=== PATIENT | female | born 1945 | race African-American/Black ===

== ENCOUNTER 2019-04-19 12:40 | Emergency (ER) | payer BC, MEDICARE ==
[~2019-04-19] VITALS: Ht 149.9 cm; Wt 50.0 kg
[~2019-04-19 12:40] MED LIST: ASPI-1393 PO; CALC667C4 PO; CINA30; METO25TA3 PO; OMEP20CA5 PO
[2019-04-19] MEDS ORDERED: ACETAMINOPHEN 325MG TABLET PO ONE (13:00)
[2019-04-19] MEDS ORDERED: BACITRACIN 15GM TUBE TOP ONE (13:45)
[2019-04-19 17:55] VITALS: BP 153/66
== END 2019-04-19 18:38 | disposition home or self-care (01) ==
LOC: ER 12:40
DX: S00.81XA Abrasion of other part of head, initial encounter (principal); W01.198A Fall on same level from slipping, tripping and stumbling with subsequent striking against other object, initial encounter; Y93.89 Activity, other specified; Y92.018 Other place in single-family (private) house as the place of occurrence of the external cause; I12.0 Hypertensive chronic kidney disease with stage 5 chronic kidney disease or end stage renal disease; E11.22 Type 2 diabetes mellitus with diabetic chronic kidney disease; N18.6 End stage renal disease; Z99.2 Dependence on renal dialysis
CPT/HCPCS: 70486; 99284

== ENCOUNTER 2019-06-02 17:59 | Inpatient (IN) | payer MEDICARE, BC ==
[~2019-06-02] VITALS: Ht 152.4 cm; Wt 43.1 kg
[2019-06-02] MEDS ORDERED: SODIUM CHLORIDE 0.9% 1,000 ML IV ONE (19:04)
[2019-06-02 21:09] LABS: BASOPHILS % 0.3 % (0.0-2.0); CHLORIDE 107 mEq/L (98-107); EOSINOPHILS % 0.3 % (0.0-5.0); HEMOGLOBIN. 10.4 g/dL (12.0-16.0); LYMPHOCYTES % 9.9 % (20.0-50.0); MEAN CORPUSCULAR HEMOGLOBIN 29.2 pg (28.0-32.0); MEAN CORPUSCULAR VOLUME 89.8 fL (81.0-99.0); MEAN PLATELET VOLUME 7.2 fl (7.4-10.4); MONOCYTES % 6.4 % (2.0-8.0); NEUTROPHILS % 83.1 % (40.0-76.0); PLATELET 296 x1000/uL (130-400); RED BLOOD CELL COUNT 3.56 mill/uL (4.2-5.4); RED CELL DISTRIBUTION WIDTH 19.7 % (11.6-14.6)
[2019-06-02] MEDS ORDERED: DEXTROSE 50% WATER 50ML SYRINGE IV ONE ×2 (21:15)
[2019-06-02] MEDS ORDERED: DEXTROSE 5% WATER 1,000 ML IV ONE (21:30)
[2019-06-02] MEDS ORDERED: LEVOFLOXACIN 750MG PREMIX 150 ML IV ONE (22:30)
[2019-06-02] MEDS ORDERED: ASPIRIN 81MG TABLET PO ONE (22:30)
[2019-06-02 22:50] LABS: CLARITY URINE TURBID (CLEAR); COLOR URINE DARK YELLOW (YELLOW); KETONES URINE NEGATIVE (NEGATIVE); LEUKOCYTE ESTERASE URINE 3+ (NEGATIVE); NITRITE URINE NEGATIVE (NEGATIVE); OCCULT BLOOD URINE 2+ (NEGATIVE); PH URINE 6.5 (4.5-8.0); PROTEIN URINE 3+ (NEGATIVE); SPECIFIC GRAVITY URINE 1.018 (1.005-1.030); UROBILINOGEN URINE 0.2 E.U./dL (0.2-1.0)
[2019-06-03 10:30] VITALS: BP 101/45
[2019-06-03] MEDS ORDERED: GUAIFENESIN 200MG/10ML SUGAR FREE UDC PO PRN (14:30)
[2019-06-03] MEDS ORDERED: ONDANSETRON HCL 4MG/2ML INJ IV PRN (14:30)
[2019-06-03] MEDS ORDERED: DOCUSATE SODIUM 100MG CAPSULE PO PRN (14:30)
[2019-06-03] MEDS ORDERED: IPRATROPIUM/ALBUTEROL 0.5-3(2.5)MG/3ML NEB NEB PRN (14:30)
[2019-06-03] MEDS ORDERED: MAGNESIUM/ALUMINUM HYDROXIDE/SIMETHICONE 30ML UDC PO PRN (14:30)
[2019-06-03] MEDS ORDERED: LORAZEPAM 2MG/ML CPJ IV PRN (14:30)
[2019-06-03] MEDS ORDERED: CLONIDINE 0.1MG TABLET PO PRN (14:30)
[2019-06-03] MEDS ORDERED: NA PHOS,M-B/NA PHOS,DI-BA ENEMA 118ML PR PRN (14:30)
[2019-06-03] MEDS ORDERED: DIPHENHYDRAMINE 50MG/ML VIAL IV PRN (14:30)
[2019-06-03] MEDS ORDERED: HYDROCODONE/ACETAMINOPHEN 5/325MG TABLET PO PRN (14:30)
[2019-06-03 16:00] VITALS: BP 110/58
[2019-06-03 20:00] VITALS: BP 113/59
[2019-06-04] VITALS: BP 130/67
[2019-06-04 04:00] VITALS: BP 112/57
[2019-06-04 06:36] LABS: BASOPHILS % 0.3 % (0.0-2.0); EOSINOPHILS % 0.6 % (0.0-5.0); HEMATOCRIT. 29.1 % (36.0-48.0); HEMOGLOBIN. 9.4 g/dL (12.0-16.0); LYMPHOCYTES % 15.4 % (20.0-50.0); MEAN CORPUSCULAR HEMOGLOBIN 28.8 pg (28.0-32.0); MEAN CORPUSCULAR VOLUME 88.8 fL (81.0-99.0); MEAN PLATELET VOLUME 7.3 fl (7.4-10.4); MONOCYTES % 7.8 % (2.0-8.0); NEUTROPHILS % 75.9 % (40.0-76.0); PLATELET 226 x1000/uL (130-400); RED BLOOD CELL COUNT 3.28 mill/uL (4.2-5.4); RED CELL DISTRIBUTION WIDTH 19.3 % (11.6-14.6)
[2019-06-04 07:23] LABS: CHLORIDE 105 mEq/L (98-107)
[2019-06-04 07:46] LABS: LDL CHOLESTEROL 80 mg/dL (5-100)
[2019-06-04 07:48] LABS: HDL CHOLESTEROL 60 mg/dL (40-59)
[2019-06-04 08:00] VITALS: BP 108/55
[2019-06-04] MEDS ORDERED: BLOOD SUGAR DIAGNOSTIC STRIP TEST SCH (08:45)
[2019-06-04] MEDS ORDERED: BLOOD SUGAR DIAGNOSTIC STRIP TEST PRN (09:00)
[2019-06-04] MEDS: ASPIRIN 81MG EC TABLET PO SCH (09:48)
[2019-06-04] MEDS: ACETAMINOPHEN 325MG TABLET PO PRN (09:48)
[2019-06-04 12:00] VITALS: BP 113/46
[2019-06-04 16:00] VITALS: BP 117/59
[2019-06-04 20:00] VITALS: BP 108/43
[2019-06-04] MEDS: INSULIN LISPRO 100 UNITS/ML SUBCUT SCH (21:00)
[2019-06-04] MEDS: BLOOD SUGAR DIAGNOSTIC STRIP TEST SCH (21:00)
[2019-06-04] MEDS: SODIUM CHLORIDE 0.9% 1,000 ML IV SCH (23:59)
[2019-06-05] VITALS: BP 93/46
[2019-06-05 04:00] VITALS: BP 130/59
[2019-06-05 06:10] LABS: BASOPHILS % 0.4 % (0.0-2.0); EOSINOPHILS % 0.4 % (0.0-5.0); HEMATOCRIT. 29.3 % (36.0-48.0); HEMOGLOBIN. 9.4 g/dL (12.0-16.0); LYMPHOCYTES % 14.6 % (20.0-50.0); MEAN CORPUSCULAR HEMOGLOBIN 28.9 pg (28.0-32.0); MEAN CORPUSCULAR VOLUME 89.8 fL (81.0-99.0); MEAN PLATELET VOLUME 7.3 fl (7.4-10.4); MONOCYTES % 7.7 % (2.0-8.0); NEUTROPHILS % 76.9 % (40.0-76.0); PLATELET 226 x1000/uL (130-400); RED BLOOD CELL COUNT 3.26 mill/uL (4.2-5.4); RED CELL DISTRIBUTION WIDTH 19.5 % (11.6-14.6)
[2019-06-05] MEDS: BLOOD SUGAR DIAGNOSTIC STRIP TEST SCH ×2 (07:40→21:46)
[2019-06-05 08:00] VITALS: BP 124/63
[2019-06-05] MEDS: INSULIN LISPRO 100 UNITS/ML SUBCUT SCH ×2 (08:10→21:00)
[2019-06-05] MEDS: ACETAMINOPHEN 325MG TABLET PO PRN (10:55)
[2019-06-05] MEDS: ASPIRIN 81MG EC TABLET PO SCH (10:55)
[2019-06-05 12:00] VITALS: BP 143/53
[2019-06-05] MEDS: SODIUM CHLORIDE 0.9% 1,000 ML IV SCH (13:21)
[2019-06-05 16:00] VITALS: BP 133/54
[2019-06-05] MEDS: DEXT 5%/0.45% NACL 1000ML 1,000 ML IV SCH (18:43)
[2019-06-05 20:00] VITALS: BP 142/66
[2019-06-05] MEDS: DEXTROSE 50% WATER 50ML SYRINGE IV PRN (21:53)
[2019-06-05] MEDS ORDERED: LEVOFLOXACIN 500MG PREMIX 100 ML IV NR (23:30)
[2019-06-06] VITALS: BP 134/70
[2019-06-06 04:00] VITALS: BP 119/51
[2019-06-06] MEDS: DEXTROSE 50% WATER 50ML SYRINGE IV PRN (06:42)
[2019-06-06 08:00] VITALS: BP 135/59
[2019-06-06] MEDS: INSULIN LISPRO 100 UNITS/ML SUBCUT SCH ×4 (08:10→21:00)
[2019-06-06] MEDS: ASPIRIN 81MG EC TABLET PO SCH (08:42)
[2019-06-06 10:38] LABS: HEMATOCRIT. 27.2 % (36.0-48.0); HEMOGLOBIN. 8.9 g/dL (12.0-16.0); RED BLOOD CELL COUNT 3.03 mill/uL (4.2-5.4)
[2019-06-06 10:39] LABS: BASOPHILS % 0.3 % (0.0-2.0); EOSINOPHILS % 0.9 % (0.0-5.0); LYMPHOCYTES % 8.6 % (20.0-50.0); MEAN CORPUSCULAR HEMOGLOBIN 29.2 pg (28.0-32.0); MEAN CORPUSCULAR VOLUME 89.8 fL (81.0-99.0); MEAN PLATELET VOLUME 7.2 fl (7.4-10.4); MONOCYTES % 6.3 % (2.0-8.0); NEUTROPHILS % 83.9 % (40.0-76.0); PLATELET 205 x1000/uL (130-400); RED CELL DISTRIBUTION WIDTH 19.9 % (11.6-14.6)
[2019-06-06 12:00] VITALS: BP 100/31
[2019-06-06] MEDS: BLOOD SUGAR DIAGNOSTIC STRIP TEST SCH ×3 (12:40→21:30)
[2019-06-06] MEDS: ACETAMINOPHEN 325MG TABLET PO PRN (14:11)
[2019-06-06 16:00] VITALS: BP 141/115
[2019-06-06] MEDS: DEXT 5%/0.45% NACL 1000ML 1,000 ML IV SCH ×2 (17:30→21:30)
[2019-06-06 20:00] VITALS: BP 139/42
[2019-06-07] VITALS (7 sets, daily range): BP systolic 118–190; BP diastolic 56–93
[2019-06-07 07:20] LABS: BASOPHILS % 0.3 % (0.0-2.0); EOSINOPHILS % 0.8 % (0.0-5.0); HEMATOCRIT. 28.1 % (36.0-48.0); LYMPHOCYTES % 7.3 % (20.0-50.0); MEAN CORPUSCULAR VOLUME 89.9 fL (81.0-99.0); MEAN PLATELET VOLUME 7.3 fl (7.4-10.4); MONOCYTES % 6.3 % (2.0-8.0); NEUTROPHILS % 85.3 % (40.0-76.0); PLATELET 206 x1000/uL (130-400); RED BLOOD CELL COUNT 3.12 mill/uL (4.2-5.4); RED CELL DISTRIBUTION WIDTH 19.5 % (11.6-14.6)
[2019-06-07] MEDS: INSULIN LISPRO 100 UNITS/ML SUBCUT SCH ×4 (08:10→21:00)
[2019-06-07] MEDS: ASPIRIN 81MG EC TABLET PO SCH (08:53)
[2019-06-07] MEDS: ACETAMINOPHEN 325MG TABLET PO PRN (08:53)
[2019-06-07] MEDS: BLOOD SUGAR DIAGNOSTIC STRIP TEST SCH ×3 (12:40→21:00)
[2019-06-07] MEDS: DEXT 5%/0.45% NACL 1000ML 1,000 ML IV SCH (17:30)
[2019-06-07] MEDS ORDERED: MORPHINE SULFATE 2 MG/ML CPJ (NOT FOR IM USE) IV PRN (19:45)
[2019-06-07] MEDS ORDERED: LEVOFLOXACIN 250MG PREMIX 50 ML IV SCH (22:00)
[2019-06-08] VITALS: BP 136/73
[2019-06-08 04:00] VITALS: BP 134/70
[2019-06-08 07:13] LABS: CHLORIDE 115 mEq/L (98-107)
[2019-06-08] MEDS: BLOOD SUGAR DIAGNOSTIC STRIP TEST SCH ×4 (07:40→21:57)
[2019-06-08 08:00] VITALS: BP 125/35
[2019-06-08] MEDS: INSULIN LISPRO 100 UNITS/ML SUBCUT SCH ×4 (08:10→21:00)
[2019-06-08] MEDS: ASPIRIN 81MG EC TABLET PO SCH (09:45)
[2019-06-08] MEDS: DEXTROSE 50% WATER 50ML SYRINGE IV PRN (10:50)
[2019-06-08 12:00] VITALS: BP 167/81
[2019-06-08 16:00] VITALS: BP 107/49
[2019-06-08 17:39] LABS: BASOPHILS % 0.3 % (0.0-2.0); EOSINOPHILS % 0.5 % (0.0-5.0); HEMATOCRIT. 30.8 % (36.0-48.0); HEMOGLOBIN. 9.7 g/dL (12.0-16.0); LYMPHOCYTES % 8.2 % (20.0-50.0); MEAN CORPUSCULAR HEMOGLOBIN 28.7 pg (28.0-32.0); MEAN CORPUSCULAR VOLUME 91.1 fL (81.0-99.0); MEAN PLATELET VOLUME 7.1 fl (7.4-10.4); MONOCYTES % 4.8 % (2.0-8.0); NEUTROPHILS % 86.2 % (40.0-76.0); PLATELET 166 x1000/uL (130-400); RED BLOOD CELL COUNT 3.38 mill/uL (4.2-5.4); RED CELL DISTRIBUTION WIDTH 19.8 % (11.6-14.6)
[2019-06-08] MEDS: DEXT 5%/0.45% NACL 1000ML 1,000 ML IV SCH (17:46)
[2019-06-08 20:00] VITALS: BP 145/59
[2019-06-08 21:06] LABS: PROTHROMBIN TIME 10.1 sec (9.6-11.0)
[2019-06-09] VITALS (7 sets, daily range): BP systolic 117–156; BP diastolic 37–88
[2019-06-09] MEDS: BLOOD SUGAR DIAGNOSTIC STRIP TEST SCH ×4 (06:28→21:00)
[2019-06-09 06:37] LABS: BASOPHILS % 0.3 % (0.0-2.0); EOSINOPHILS % 1.4 % (0.0-5.0); HEMATOCRIT. 26.9 % (36.0-48.0); HEMOGLOBIN. 8.7 g/dL (12.0-16.0); MEAN CORPUSCULAR HEMOGLOBIN 29.3 pg (28.0-32.0); MEAN CORPUSCULAR VOLUME 90.8 fL (81.0-99.0); MEAN PLATELET VOLUME 7.5 fl (7.4-10.4); MONOCYTES % 5.9 % (2.0-8.0); NEUTROPHILS % 82.4 % (40.0-76.0); PLATELET 189 x1000/uL (130-400); RED BLOOD CELL COUNT 2.96 mill/uL (4.2-5.4); RED CELL DISTRIBUTION WIDTH 20.1 % (11.6-14.6)
[2019-06-09] MEDS: INSULIN LISPRO 100 UNITS/ML SUBCUT SCH ×4 (07:55→21:00)
[2019-06-09] MEDS: ASPIRIN 81MG EC TABLET PO SCH (08:54)
[2019-06-09] MEDS: DEXTROSE 50% WATER 50ML SYRINGE IV PRN ×3 (11:52→20:41)
[2019-06-09] MEDS ORDERED: LEVOFLOXACIN 250MG PREMIX 50 ML IV ONE (13:35)
[2019-06-09] MEDS ORDERED: MIDAZOLAM HCL 5 MG/5 ML VIAL ONE (13:49)
[2019-06-09] MEDS ORDERED: FENTANYL CITRATE/PF 50MCG/ML 2ML VIAL ONE (13:50)
[2019-06-09] MEDS ORDERED: MIDAZOLAM HCL 2 MG/2 ML VIAL IV PRN (14:06)
[2019-06-09] MEDS ORDERED: FENTANYL CITRATE/PF 50MCG/ML 2ML VIAL IV PRN (14:07)
[2019-06-09] MEDS ORDERED: DEXTROSE 5% WATER 1,000 ML IV SCH (18:00)
[2019-06-09] MEDS: METOCLOPRAMIDE HCL 10MG/2ML VIAL IV SCH (18:00)
[2019-06-09] MEDS: SUCRALFATE 1 G/10 ML UDC GT SCH (18:00)
[2019-06-09] MEDS ORDERED: DEXT 10% WATER 1,000 ML IV SCH (20:15)
[2019-06-10] VITALS: BP 105/61
[2019-06-10] MEDS: SUCRALFATE 1 G/10 ML UDC GT SCH ×4 (00:15→17:49)
[2019-06-10] MEDS: METOCLOPRAMIDE HCL 10MG/2ML VIAL IV SCH ×4 (00:15→17:49)
[2019-06-10 04:00] VITALS: BP 127/35
[2019-06-10] MEDS: BLOOD SUGAR DIAGNOSTIC STRIP TEST SCH ×4 (06:22→17:11)
[2019-06-10 08:00] VITALS: BP_SYST 148; BP_SYST 161; BP_DIAS 21; BP_DIAS 48
[2019-06-10] MEDS: INSULIN LISPRO 100 UNITS/ML SUBCUT SCH ×4 (08:10→17:12)
[2019-06-10] MEDS: ASPIRIN 81MG EC TABLET PO SCH (09:00)
[2019-06-10] MEDS: PANTOPRAZOLE SODIUM 40 MG/VIAL IV SCH (09:37)
[2019-06-10 12:00] VITALS: BP 90/15
[2019-06-10 16:00] VITALS: BP 157/37
[2019-06-10] MEDS: DEXT 10% WATER 1,000 ML IV SCH (16:00)
[2019-06-10 20:00] VITALS: BP 111/36
[2019-06-11] VITALS: BP 174/32
[2019-06-11] MEDS: BLOOD SUGAR DIAGNOSTIC STRIP TEST SCH ×4 (00:18→17:52)
[2019-06-11] MEDS: SUCRALFATE 1 G/10 ML UDC GT SCH ×5 (00:18→23:51)
[2019-06-11] MEDS: METOCLOPRAMIDE HCL 10MG/2ML VIAL IV SCH ×3 (00:18→12:42)
[2019-06-11 04:00] VITALS: BP 141/31
[2019-06-11] MEDS: INSULIN LISPRO 100 UNITS/ML SUBCUT SCH ×4 (05:51→21:00)
[2019-06-11 08:00] VITALS: BP 127/37
[2019-06-11] MEDS: ASPIRIN 81MG EC TABLET PO SCH (08:51)
[2019-06-11] MEDS: PANTOPRAZOLE SODIUM 40 MG/VIAL IV SCH (08:51)
[2019-06-11 11:05] LABS: BASOPHILS % 0.2 % (0.0-2.0); EOSINOPHILS % 0.4 % (0.0-5.0); HEMATOCRIT. 23.9 % (36.0-48.0); HEMOGLOBIN. 7.8 g/dL (12.0-16.0); LYMPHOCYTES % 10.5 % (20.0-50.0); MEAN CORPUSCULAR HEMOGLOBIN 29.5 pg (28.0-32.0); MEAN CORPUSCULAR VOLUME 90.5 fL (81.0-99.0); MEAN PLATELET VOLUME 8.1 fl (7.4-10.4); NEUTROPHILS % 83.9 % (40.0-76.0); PLATELET 152 x1000/uL (130-400); RED BLOOD CELL COUNT 2.64 mill/uL (4.2-5.4); RED CELL DISTRIBUTION WIDTH 19.4 % (11.6-14.6)
[2019-06-11 12:00] VITALS: BP 97/63
[2019-06-11] MEDS: DEXT 10% WATER 1,000 ML IV SCH (12:00)
[2019-06-11] MEDS ORDERED: LEVOFLOXACIN 250MG PREMIX 50 ML IV SCH (15:00)
[2019-06-11 16:00] VITALS: BP 133/55
[2019-06-11] MEDS: LANSOPRAZOLE 30MG DR CAPSULE GT SCH (17:00)
[2019-06-11] MEDS: METOCLOPRAMIDE HCL 10MG TABLET GT SCH ×2 (18:23→23:51)
[2019-06-11 20:00] VITALS: BP 104/26
[2019-06-12 00:05] VITALS: BP 127/30
[2019-06-12] MEDS: BLOOD SUGAR DIAGNOSTIC STRIP TEST SCH ×4 (00:07→18:27)
[2019-06-12 04:00] VITALS: BP_SYST 108; BP_SYST 144; BP_DIAS 33; BP_DIAS 52
[2019-06-12] MEDS: SUCRALFATE 1 G/10 ML UDC GT SCH ×2 (05:05→17:38)
[2019-06-12] MEDS: METOCLOPRAMIDE HCL 10MG TABLET GT SCH ×2 (05:05→17:38)
[2019-06-12] MEDS ORDERED: PANTOPRAZOLE 40MG DR TABLET PO SCH (07:40)
[2019-06-12 08:00] VITALS: BP 108/20
[2019-06-12] MEDS: INSULIN LISPRO 100 UNITS/ML SUBCUT SCH ×4 (08:10→21:00)
[2019-06-12] MEDS: ASPIRIN 81MG EC TABLET PO SCH (09:04)
[2019-06-12] MEDS: LANSOPRAZOLE 30MG DR CAPSULE GT SCH (09:04)
[2019-06-12 10:58] LABS: BASOPHILS % 0.2 % (0.0-2.0); EOSINOPHILS % 1.1 % (0.0-5.0); HEMATOCRIT. 24.2 % (36.0-48.0); HEMOGLOBIN. 7.9 g/dL (12.0-16.0); LYMPHOCYTES % 11.6 % (20.0-50.0); MEAN CORPUSCULAR HEMOGLOBIN 29.2 pg (28.0-32.0); MEAN CORPUSCULAR VOLUME 89.2 fL (81.0-99.0); MEAN PLATELET VOLUME 7.8 fl (7.4-10.4); NEUTROPHILS % 81.1 % (40.0-76.0); PLATELET 177 x1000/uL (130-400); RED BLOOD CELL COUNT 2.71 mill/uL (4.2-5.4); RED CELL DISTRIBUTION WIDTH 20.1 % (11.6-14.6)
[2019-06-12 11:51] VITALS: BP 100/32
[2019-06-12 16:00] VITALS: BP 106/46
[2019-06-12] MEDS ORDERED: DOCUSATE SODIUM SUGAR FREE 100MG/10ML UDC GT PRN (22:30)
[2019-06-13] MEDS: SUCRALFATE 1 G/10 ML UDC GT SCH (00:24)
[2019-06-13] MEDS: METOCLOPRAMIDE 10MG/10 ML UDC GT SCH ×4 (00:24→18:52)
[2019-06-13] MEDS ORDERED: LIDOCAINE HCL/EPINEPHRINE 1%-EPI 1:100,000 20 ML VIAL INFIL NR (05:00)
[2019-06-13] MEDS: BLOOD SUGAR DIAGNOSTIC STRIP TEST SCH ×4 (06:00→18:52)
[2019-06-13] MEDS: INSULIN LISPRO 100 UNITS/ML SUBCUT SCH ×3 (08:10→18:10)
[2019-06-13] MEDS: ASPIRIN 81MG EC TABLET PO SCH (10:34)
[2019-06-13] MEDS: LANSOPRAZOLE 30MG DR CAPSULE GT SCH (10:34)
[2019-06-13] MEDS: CLARITHROMYCIN 500MG TABLET PO SCH (15:26)
[2019-06-13] MEDS: LEVOFLOXACIN 250MG TABLET PO SCH (15:26)
[2019-06-13 20:00] VITALS: BP 151/85
[2019-06-14] VITALS: BP 123/38
[2019-06-14] MEDS: CLARITHROMYCIN 500MG TABLET PO SCH ×3 (00:59→20:49)
[2019-06-14] MEDS: METOCLOPRAMIDE 10MG/10 ML UDC GT SCH ×4 (01:00→18:41)
[2019-06-14] MEDS: BLOOD SUGAR DIAGNOSTIC STRIP TEST SCH ×5 (01:00→23:52)
[2019-06-14 04:00] VITALS: BP 119/50
[2019-06-14] MEDS: INSULIN LISPRO 100 UNITS/ML SUBCUT SCH ×4 (06:00→18:00)
[2019-06-14] MEDS: SUCRALFATE 1 G/10 ML UDC GT SCH ×5 (06:18→16:24)
[2019-06-14] MEDS: LANSOPRAZOLE 30MG DR CAPSULE GT SCH (06:18)
[2019-06-14 08:00] VITALS: BP 91/27
[2019-06-14] MEDS: ASPIRIN 81MG EC TABLET PO SCH (10:01)
[2019-06-14 10:41] LABS: HEMOGLOBIN. 8.5 g/dL (12.0-16.0); MEAN CORPUSCULAR HEMOGLOBIN 29.2 pg (28.0-32.0); MEAN CORPUSCULAR VOLUME 89.7 fL (81.0-99.0); MEAN PLATELET VOLUME 7.3 fl (7.4-10.4); PLATELET 256 x1000/uL (130-400); RED CELL DISTRIBUTION WIDTH 19.9 % (11.6-14.6)
[2019-06-14 12:00] VITALS: BP 90/33
[2019-06-14 15:04] LABS: PLATELET ESTIMATE NORMAL
[2019-06-14 16:00] VITALS: BP 98/28
[2019-06-14 20:00] VITALS: BP 105/38
[2019-06-15] VITALS: BP 143/29
[2019-06-15] MEDS ORDERED: HEPARIN SODIUM 1,000 UNIT/1ML VIAL IV SCH (02:45)
[2019-06-15] MEDS: ACETAMINOPHEN 325MG TABLET PO PRN (02:58)
[2019-06-15 04:00] VITALS: BP 104/23
[2019-06-15] MEDS: METOCLOPRAMIDE 10MG/10 ML UDC GT SCH ×4 (05:13→23:51)
[2019-06-15] MEDS: SUCRALFATE 1 G/10 ML UDC GT SCH ×4 (05:13→23:51)
[2019-06-15] MEDS: INSULIN LISPRO 100 UNITS/ML SUBCUT SCH ×4 (06:00→18:00)
[2019-06-15] MEDS: BLOOD SUGAR DIAGNOSTIC STRIP TEST SCH ×4 (06:31→23:51)
[2019-06-15 08:00] VITALS: BP 95/43
[2019-06-15] MEDS: LANSOPRAZOLE 30MG DR CAPSULE GT SCH (09:12)
[2019-06-15] MEDS: CLARITHROMYCIN 500MG TABLET PO SCH ×2 (09:12→20:35)
[2019-06-15] MEDS: ASPIRIN 81MG EC TABLET PO SCH (09:12)
[2019-06-15] MEDS: LEVOFLOXACIN 250MG TABLET PO SCH (12:15)
[2019-06-16] MEDS: INSULIN LISPRO 100 UNITS/ML SUBCUT SCH ×3 (06:00→12:00)
[2019-06-16] MEDS: SUCRALFATE 1 G/10 ML UDC GT SCH ×4 (06:38→19:08)
[2019-06-16] MEDS: BLOOD SUGAR DIAGNOSTIC STRIP TEST SCH ×2 (06:38→12:00)
[2019-06-16] MEDS: METOCLOPRAMIDE 10MG/10 ML UDC GT SCH ×4 (06:38→19:08)
[2019-06-16 08:00] VITALS: BP 89/38
[2019-06-16] MEDS: LANSOPRAZOLE 30MG DR CAPSULE GT SCH (09:39)
[2019-06-16] MEDS: CLARITHROMYCIN 500MG TABLET PO SCH (09:39)
[2019-06-16] MEDS: ASPIRIN 81MG EC TABLET PO SCH (09:39)
[2019-06-16 11:48] LABS: HEMATOCRIT. 22.2 % (36.0-48.0); HEMOGLOBIN. 7.2 g/dL (12.0-16.0); MEAN CORPUSCULAR HEMOGLOBIN 28.7 pg (28.0-32.0); MEAN CORPUSCULAR VOLUME 88.7 fL (81.0-99.0); MEAN PLATELET VOLUME 7.2 fl (7.4-10.4); PLATELET 304 x1000/uL (130-400); RED CELL DISTRIBUTION WIDTH 19.8 % (11.6-14.6)
[2019-06-16 12:00] VITALS: BP 131/79
[2019-06-16 12:31] LABS: PLATELET ESTIMATE NORMAL
[2019-06-16 13:48] VITALS: BP 131/79
[2019-06-16 16:00] VITALS: BP 132/46
== END 2019-06-16 22:32 | DRG 356 ==
LOC: ER 17:59 → 7WST 21:21 → EDBEDREQ 21:29 → EDBEDREQTM 21:29 → ENRESERV 06-03 08:05 → 7WST 06-03 11:07
PROVIDERS: ADMIT Internal Medicine; ATTEND Internal Medicine
PROC: 5A1D70Z Performance of Urinary Filtration, Intermittent, Less than 6 Hours Per Day (ICD-10-PCS; 2019-06-03)
PROC: 5A1D70Z Performance of Urinary Filtration, Intermittent, Less than 6 Hours Per Day (ICD-10-PCS; 2019-06-05)
PROC: 0JBL0ZZ Excision of Right Upper Leg Subcutaneous Tissue and Fascia, Open Approach (ICD-10-PCS; 2019-06-07)
PROC: 5A1D70Z Performance of Urinary Filtration, Intermittent, Less than 6 Hours Per Day (ICD-10-PCS; 2019-06-08)
PROC: 5A1D70Z Performance of Urinary Filtration, Intermittent, Less than 6 Hours Per Day (ICD-10-PCS; 2019-06-11)
PROC: 5A1D70Z Performance of Urinary Filtration, Intermittent, Less than 6 Hours Per Day (ICD-10-PCS; 2019-06-11)
PROC: 0DB78ZX Excision of Stomach, Pylorus, Via Natural or Artificial Opening Endoscopic, Diagnostic (ICD-10-PCS; 2019-06-12)
PROC: 0DH63UZ Insertion of Feeding Device into Stomach, Percutaneous Approach (ICD-10-PCS; 2019-06-12)
PROC: 0KBN0ZZ Excision of Right Hip Muscle, Open Approach (ICD-10-PCS; principal; 2019-06-13)
PROC: 5A1D70Z Performance of Urinary Filtration, Intermittent, Less than 6 Hours Per Day (ICD-10-PCS; 2019-06-13)
PROC: 5A1D70Z Performance of Urinary Filtration, Intermittent, Less than 6 Hours Per Day (ICD-10-PCS; 2019-06-15)
DX: K25.9 Gastric ulcer, unspecified as acute or chronic, without hemorrhage or perforation (principal); L89.133 Pressure ulcer of right lower back, stage 3; E43 Unspecified severe protein-calorie malnutrition; N18.6 End stage renal disease; I62.00 Nontraumatic subdural hemorrhage, unspecified; N30.00 Acute cystitis without hematuria; I13.2 Hypertensive heart and chronic kidney disease with heart failure and with stage 5 chronic kidney disease, or end stage renal disease; Z68.1 Body mass index [BMI] 19.9 or less, adult; L89.210 Pressure ulcer of right hip, unstageable; K29.60 Other gastritis without bleeding; K29.80 Duodenitis without bleeding; E11.649 Type 2 diabetes mellitus with hypoglycemia without coma; I50.9 Heart failure, unspecified; E11.22 Type 2 diabetes mellitus with diabetic chronic kidney disease; D64.9 Anemia, unspecified; E86.0 Dehydration; I25.10 Atherosclerotic heart disease of native coronary artery without angina pectoris; E87.6 Hypokalemia; L89.159 Pressure ulcer of sacral region, unspecified stage; L89.619 Pressure ulcer of right heel, unspecified stage; L89.629 Pressure ulcer of left heel, unspecified stage; B96.81 Helicobacter pylori [H. pylori] as the cause of diseases classified elsewhere; R13.10 Dysphagia, unspecified; R74.0 Nonspecific elevation of levels of transaminase and lactic acid dehydrogenase [LDH]; S80.211A Abrasion, right knee, initial encounter; X58.XXXA Exposure to other specified factors, initial encounter; L89.229 Pressure ulcer of left hip, unspecified stage; D72.829 Elevated white blood cell count, unspecified; L89.890 Pressure ulcer of other site, unstageable; M20.42 Other hammer toe(s) (acquired), left foot; M20.41 Other hammer toe(s) (acquired), right foot; S41.112A Laceration without foreign body of left upper arm, initial encounter; R62.7 Adult failure to thrive; Z79.899 Other long term (current) drug therapy; Z91.81 History of falling; Z86.73 Personal history of transient ischemic attack (TIA), and cerebral infarction without residual deficits; Z79.82 Long term (current) use of aspirin; Z88.0 Allergy status to penicillin; Z99.2 Dependence on renal dialysis; Z74.01 Bed confinement status; Z91.018 Allergy to other foods; Y93.89 Activity, other specified; Y92.89 Other specified places as the place of occurrence of the external cause; Y99.8 Other external cause status
CPT/HCPCS: 36415; 71045; 80048; 80053; 80061; 80076; 81003; 82962; 84134; 84439; 84443; 84484; 85025; 88305; 88312; 88313; 92610; 93005; 93970; 97161; 97530; 97535; 99291; A6261; C9113; J1644; J1815; J1956; J2250; J2765; J3010; J3490; J7030; J7070; J8597

== ENCOUNTER 2019-06-22 14:36 | Inpatient (IN) | payer MEDICARE, BC ==
[~2019-06-22] VITALS: Ht 162.6 cm; Wt 56.2 kg
[~2019-06-22 14:36] MED LIST changes: -ASPI-1393 PO; +ASPI-1497 PO; +OMEP20CA14 PO; -OMEP20CA5 PO
[2019-06-22 16:34] LABS: BASOPHILS % 0.3 % (0.0-2.0); EOSINOPHILS % 0.9 % (0.0-5.0); LYMPHOCYTES % 9.4 % (20.0-50.0); MEAN CORPUSCULAR HEMOGLOBIN 29.1 pg (28.0-32.0); MEAN CORPUSCULAR VOLUME 89.1 fL (81.0-99.0); MEAN PLATELET VOLUME 7.2 fl (7.4-10.4); MONOCYTES % 6.9 % (2.0-8.0); NEUTROPHILS % 82.5 % (40.0-76.0); PLATELET 411 x1000/uL (130-400); RED CELL DISTRIBUTION WIDTH 18.4 % (11.6-14.6)
[2019-06-22 16:39] LABS: CHLORIDE 96 mEq/L (98-107); PROTHROMBIN TIME 9.9 sec (9.6-11.0)
[2019-06-22 16:40] LABS: HEMOGLOBIN. 5.5 g/dL (12.0-16.0)
[2019-06-22 16:41] LABS: HEMATOCRIT. 16.9 % (36.0-48.0)
[2019-06-22] MEDS ORDERED: DOCUSATE SODIUM 100MG CAPSULE PO PRN (17:00)
[2019-06-22] MEDS ORDERED: HYDRALAZINE 20MG/ML VIAL IV PRN (17:00)
[2019-06-22] MEDS ORDERED: DIPHENHYDRAMINE 50MG/ML VIAL IV PRN (17:00)
[2019-06-22] MEDS ORDERED: HYDROCODONE/ACETAMINOPHEN 10/325MG TABLET PO PRN (17:00)
[2019-06-22] MEDS ORDERED: GUAIFENESIN 200MG/10ML SUGAR FREE UDC PO PRN (17:00)
[2019-06-22] MEDS ORDERED: MAGNESIUM/ALUMINUM HYDROXIDE/SIMETHICONE 30ML UDC PO PRN (17:00)
[2019-06-22] MEDS ORDERED: ONDANSETRON HCL 4MG/2ML INJ IV PRN (17:00)
[2019-06-22] MEDS ORDERED: MORPHINE SULFATE 2 MG/ML CPJ (NOT FOR IM USE) IV PRN (17:00)
[2019-06-22] MEDS ORDERED: LORAZEPAM 2MG/ML CPJ IV PRN (17:00)
[2019-06-22] MEDS ORDERED: CLONIDINE 0.1MG TABLET PO PRN (17:00)
[2019-06-22] MEDS: BLOOD SUGAR DIAGNOSTIC STRIP TEST SCH ×2 (17:51→23:00)
[2019-06-22] MEDS ORDERED: INSULIN LISPRO 100 UNITS/ML SUBCUT SCH (18:20)
[2019-06-22] MEDS ORDERED: LEVOFLOXACIN 500MG PREMIX 100 ML IV NR (19:45)
[2019-06-22] MEDS: DEXTROSE 50% WATER 50ML SYRINGE IV PRN (22:01)
[2019-06-23] VITALS: BP 108/24
[2019-06-23] MEDS ORDERED: DOCU50LI25 GT (01:05)
[2019-06-23] MEDS ORDERED: SUCR1TAB GT (01:05)
[2019-06-23] MEDS ORDERED: CLON0.1T GT (01:05)
[2019-06-23] MEDS ORDERED: DEXTL GT (01:05)
[2019-06-23] MEDS ORDERED: OMEP20TA2 GT (01:05)
[2019-06-23] MEDS ORDERED: TOPUD GT (01:05)
[2019-06-23] MEDS ORDERED: METO-293 GT (01:05)
[2019-06-23] MEDS ORDERED: LEVO250T58 IV (01:05)
[2019-06-23 04:00] VITALS: BP 137/27
[2019-06-23] MEDS: BLOOD SUGAR DIAGNOSTIC STRIP TEST SCH ×4 (05:00→21:27)
[2019-06-23] MEDS: INSULIN LISPRO 100 UNITS/ML SUBCUT SCH ×3 (06:00→18:00)
[2019-06-23] MEDS: DEXTROSE 50% WATER 50ML SYRINGE IV PRN (06:20)
[2019-06-23] MEDS: SODIUM CHLORIDE 0.9% INJ 3ML FLUSH IVF SCH ×2 (06:20→21:27)
[2019-06-23 07:41] LABS: MEAN CORPUSCULAR HEMOGLOBIN 30.1 pg (28.0-32.0); MEAN CORPUSCULAR VOLUME 88.9 fL (81.0-99.0); MEAN PLATELET VOLUME 7.1 fl (7.4-10.4); PLATELET 386 x1000/uL (130-400); RED BLOOD CELL COUNT 2.33 mill/uL (4.2-5.4); RED CELL DISTRIBUTION WIDTH 15.7 % (11.6-14.6)
[2019-06-23 08:00] VITALS: BP 96/57
[2019-06-23 08:08] LABS: CREATINE KINASE MB FRACTION 3.5 ng/mL (0.5-3.6)
[2019-06-23 08:29] LABS: HEMATOCRIT. 20.7 % (36.0-48.0)
[2019-06-23 09:02] LABS: HEMATOCRIT 22.9 % (36.0-48.0); HEMOGLOBIN 7.8 g/dL (12.0-16.0)
[2019-06-23 11:06] LABS: PLATELET ESTIMATE NORMAL
[2019-06-23 12:00] VITALS: BP 136/46
[2019-06-23] MEDS ORDERED: LEVOFLOXACIN 500MG PREMIX 100 ML IV SCH ×2 (13:00→16:45)
[2019-06-23 16:00] VITALS: BP 146/38
[2019-06-23] MEDS ORDERED: SORBITOL 70% SOLN 30ML PO NR (17:15)
[2019-06-23] MEDS: SUCRALFATE 1 G/10 ML UDC PO SCH ×2 (18:12→21:26)
[2019-06-23] MEDS: FERROUS SULFATE 300MG/5ML UDC GT SCH (18:12)
[2019-06-23] MEDS: PANTOPRAZOLE SODIUM 40 MG/VIAL IV SCH (18:13)
[2019-06-23 20:00] VITALS: BP 122/29
[2019-06-23] MEDS: CLARITHROMYCIN 500MG TABLET PO SCH (21:29)
[2019-06-24] VITALS (10 sets, daily range): BP systolic 123–162; BP diastolic 20–60
[2019-06-24] MEDS: BLOOD SUGAR DIAGNOSTIC STRIP TEST SCH ×4 (05:00→23:00)
[2019-06-24] MEDS: INSULIN LISPRO 100 UNITS/ML SUBCUT SCH ×4 (06:00→18:00)
[2019-06-24] MEDS: SODIUM CHLORIDE 0.9% INJ 3ML FLUSH IVF SCH ×3 (06:49→22:00)
[2019-06-24] MEDS: SUCRALFATE 1 G/10 ML UDC PO SCH ×4 (06:58→21:16)
[2019-06-24 07:46] LABS: HEMATOCRIT. 21.7 % (36.0-48.0); HEMOGLOBIN. 7.3 g/dL (12.0-16.0); MEAN CORPUSCULAR HEMOGLOBIN 29.7 pg (28.0-32.0); MEAN CORPUSCULAR VOLUME 88.7 fL (81.0-99.0); PLATELET 458 x1000/uL (130-400); RED BLOOD CELL COUNT 2.45 mill/uL (4.2-5.4)
[2019-06-24] MEDS: DOCUSATE SODIUM SUGAR FREE 100MG/10ML UDC NG SCH (09:00)
[2019-06-24] MEDS: PANTOPRAZOLE SODIUM 40 MG/VIAL IV SCH ×2 (09:43→17:52)
[2019-06-24] MEDS: CLARITHROMYCIN 500MG TABLET PO SCH ×2 (09:43→21:16)
[2019-06-24] MEDS: FERROUS SULFATE 300MG/5ML UDC GT SCH ×3 (09:43→17:50)
[2019-06-24 16:23] LABS: PLATELET ESTIMATE INCREASED
[2019-06-24 20:42] LABS: HEMATOCRIT 29.3 % (36.0-48.0)
[2019-06-25] VITALS: BP 147/23
[2019-06-25 04:00] VITALS: BP 152/18
[2019-06-25] MEDS: BLOOD SUGAR DIAGNOSTIC STRIP TEST SCH ×3 (05:00→22:07)
[2019-06-25] MEDS: INSULIN LISPRO 100 UNITS/ML SUBCUT SCH ×4 (06:00→22:07)
[2019-06-25] MEDS: SODIUM CHLORIDE 0.9% INJ 3ML FLUSH IVF SCH ×3 (06:00→21:54)
[2019-06-25] MEDS: SUCRALFATE 1 G/10 ML UDC PO SCH ×4 (07:20→21:53)
[2019-06-25] MEDS: FERROUS SULFATE 300MG/5ML UDC GT SCH ×3 (07:50→16:43)
[2019-06-25 08:00] VITALS: BP 102/68
[2019-06-25 08:26] LABS: HEMATOCRIT. 26.1 % (36.0-48.0); HEMOGLOBIN. 8.9 g/dL (12.0-16.0); MEAN CORPUSCULAR HEMOGLOBIN 30.5 pg (28.0-32.0); MEAN CORPUSCULAR VOLUME 88.9 fL (81.0-99.0); PLATELET 439 x1000/uL (130-400); RED BLOOD CELL COUNT 2.94 mill/uL (4.2-5.4); RED CELL DISTRIBUTION WIDTH 15.7 % (11.6-14.6)
[2019-06-25] MEDS: PANTOPRAZOLE SODIUM 40 MG/VIAL IV SCH ×2 (08:29→16:39)
[2019-06-25 08:30] LABS: PARTIAL THROMBOPLASTIN TIME 42.3 sec (23.4-31.0); PROTHROMBIN TIME 10.2 sec (9.6-11.0)
[2019-06-25] MEDS: DOCUSATE SODIUM SUGAR FREE 100MG/10ML UDC NG SCH (09:00)
[2019-06-25] MEDS: CLARITHROMYCIN 500MG TABLET PO SCH ×2 (09:00→21:53)
[2019-06-25 11:11] LABS: PLATELET ESTIMATE SLIGHTLY INCREASED
[2019-06-25 12:00] VITALS: BP 146/32
[2019-06-25] MEDS ORDERED: MIDAZOLAM HCL 5 MG/5 ML VIAL IV PRN (13:00)
[2019-06-25] MEDS ORDERED: MIDAZOLAM HCL 5 MG/5 ML VIAL ONE (13:01)
[2019-06-25] MEDS ORDERED: FENTANYL CITRATE/PF 50MCG/ML 2ML VIAL ONE (13:01)
[2019-06-25] MEDS: LEVOFLOXACIN 250MG PREMIX 50 ML IV SCH (14:47)
[2019-06-25] MEDS ORDERED: POTASSIUM CHLORIDE 20MEQ TABLET SR PO NR (15:30)
[2019-06-25 16:00] VITALS: BP 152/29
[2019-06-25 20:00] VITALS: BP 145/24
[2019-06-26] VITALS (7 sets, daily range): BP systolic 106–184; BP diastolic 21–68
[2019-06-26] MEDS: BLOOD SUGAR DIAGNOSTIC STRIP TEST SCH ×4 (05:00→23:21)
[2019-06-26] MEDS: INSULIN LISPRO 100 UNITS/ML SUBCUT SCH ×4 (06:00→23:50)
[2019-06-26] MEDS: SUCRALFATE 1 G/10 ML UDC PO SCH ×4 (06:33→23:14)
[2019-06-26] MEDS: SODIUM CHLORIDE 0.9% INJ 3ML FLUSH IVF SCH ×3 (06:33→21:20)
[2019-06-26 08:12] LABS: HEMATOCRIT. 22.6 % (36.0-48.0); MEAN CORPUSCULAR HEMOGLOBIN 31.4 pg (28.0-32.0); MEAN CORPUSCULAR VOLUME 89.2 fL (81.0-99.0); MEAN PLATELET VOLUME 7.1 fl (7.4-10.4); PLATELET 375 x1000/uL (130-400); RED BLOOD CELL COUNT 2.53 mill/uL (4.2-5.4); RED CELL DISTRIBUTION WIDTH 15.9 % (11.6-14.6)
[2019-06-26] MEDS: CLARITHROMYCIN 500MG TABLET PO SCH ×2 (08:44→21:19)
[2019-06-26] MEDS: PANTOPRAZOLE SODIUM 40 MG/VIAL IV SCH ×2 (08:44→16:34)
[2019-06-26] MEDS: FERROUS SULFATE 300MG/5ML UDC GT SCH ×3 (08:45→16:35)
[2019-06-26] MEDS: DOCUSATE SODIUM SUGAR FREE 100MG/10ML UDC NG SCH (08:45)
[2019-06-26] MEDS: ACETAMINOPHEN 325MG TABLET PO PRN (08:45)
[2019-06-26] MEDS ORDERED: SORBITOL 70% SOLN 30ML PO NR ×2 (21:00→21:15)
[2019-06-27] VITALS: BP 139/46
[2019-06-27 04:00] VITALS: BP 130/44
[2019-06-27] MEDS: BLOOD SUGAR DIAGNOSTIC STRIP TEST SCH ×4 (05:31→23:11)
[2019-06-27] MEDS: SUCRALFATE 1 G/10 ML UDC PO SCH ×4 (05:51→21:42)
[2019-06-27] MEDS: SODIUM CHLORIDE 0.9% INJ 3ML FLUSH IVF SCH ×3 (05:51→21:42)
[2019-06-27] MEDS ORDERED: SORBITOL 70% SOLN 30ML PO NR ×2 (06:00)
[2019-06-27] MEDS: INSULIN LISPRO 100 UNITS/ML SUBCUT SCH ×4 (06:00→23:11)
[2019-06-27 07:12] LABS: PLATELET ESTIMATE NORMAL
[2019-06-27] MEDS: FERROUS SULFATE 300MG/5ML UDC GT SCH ×3 (07:50→17:30)
[2019-06-27 08:00] VITALS: BP 129/49
[2019-06-27] MEDS: CLARITHROMYCIN 500MG TABLET PO SCH ×2 (09:00→21:42)
[2019-06-27] MEDS: DOCUSATE SODIUM SUGAR FREE 100MG/10ML UDC NG SCH (09:00)
[2019-06-27] MEDS ORDERED: NA PHOS,M-B/NA PHOS,DI-BA ENEMA 118ML PR NR (10:00)
[2019-06-27] MEDS: PANTOPRAZOLE SODIUM 40 MG/VIAL IV SCH ×2 (10:16→17:00)
[2019-06-27 12:00] VITALS: BP 146/74
[2019-06-27] MEDS: LEVOFLOXACIN 250MG PREMIX 50 ML IV SCH (13:16)
[2019-06-27 16:00] VITALS: BP 163/49
[2019-06-27] MEDS ORDERED: FENTANYL CITRATE/PF 50MCG/ML 2ML VIAL ONE (16:34)
[2019-06-27] MEDS ORDERED: MIDAZOLAM HCL 5 MG/5 ML VIAL ONE (16:34)
[2019-06-27] MEDS ORDERED: MIDAZOLAM HCL 5 MG/5 ML VIAL IV PRN (16:42)
[2019-06-27 20:00] VITALS: BP 145/38
[2019-06-27] MEDS ORDERED: ALTEPLASE 2MG/VIAL ITC NR (23:45)
[2019-06-28] VITALS: BP 147/26
[2019-06-28 04:00] VITALS: BP 152/27
[2019-06-28] MEDS: BLOOD SUGAR DIAGNOSTIC STRIP TEST SCH ×4 (05:53→23:00)
[2019-06-28] MEDS: INSULIN LISPRO 100 UNITS/ML SUBCUT SCH ×3 (05:53→17:55)
[2019-06-28] MEDS: SODIUM CHLORIDE 0.9% INJ 3ML FLUSH IVF SCH ×3 (05:53→21:59)
[2019-06-28] MEDS: SUCRALFATE 1 G/10 ML UDC PO SCH ×4 (06:35→21:58)
[2019-06-28 08:00] VITALS: BP 145/30
[2019-06-28] MEDS: DOCUSATE SODIUM SUGAR FREE 100MG/10ML UDC NG SCH (09:38)
[2019-06-28] MEDS: PANTOPRAZOLE SODIUM 40 MG/VIAL IV SCH ×2 (09:38→17:43)
[2019-06-28] MEDS: FERROUS SULFATE 300MG/5ML UDC GT SCH ×3 (09:38→17:43)
[2019-06-28 12:00] VITALS: BP 114/30
[2019-06-28 16:00] VITALS: BP 123/61
[2019-06-28 20:00] VITALS: BP 127/44
[2019-06-28] MEDS ORDERED: HEPARIN SODIUM 1,000 UNIT/1ML VIAL IV SCH (22:00)
[2019-06-29] VITALS: BP 140/22
[2019-06-29] MEDS: INSULIN LISPRO 100 UNITS/ML SUBCUT SCH ×5 (00:06→23:19)
[2019-06-29 04:00] VITALS: BP 136/34
[2019-06-29] MEDS: BLOOD SUGAR DIAGNOSTIC STRIP TEST SCH ×4 (05:00→23:09)
[2019-06-29] MEDS: SODIUM CHLORIDE 0.9% INJ 3ML FLUSH IVF SCH ×3 (06:23→21:42)
[2019-06-29] MEDS: SUCRALFATE 1 G/10 ML UDC PO SCH ×4 (06:32→21:42)
[2019-06-29 08:00] VITALS: BP 143/102
[2019-06-29] MEDS: FERROUS SULFATE 300MG/5ML UDC GT SCH ×3 (08:55→17:23)
[2019-06-29] MEDS: PANTOPRAZOLE SODIUM 40 MG/VIAL IV SCH ×2 (08:55→17:22)
[2019-06-29] MEDS: DOCUSATE SODIUM SUGAR FREE 100MG/10ML UDC NG SCH (08:56)
[2019-06-29 12:00] VITALS: BP 121/23
[2019-06-29 12:18] LABS: HEMATOCRIT. 22.9 % (36.0-48.0); HEMOGLOBIN. 7.7 g/dL (12.0-16.0); MEAN CORPUSCULAR VOLUME 89.7 fL (81.0-99.0); PLATELET 365 x1000/uL (130-400); RED BLOOD CELL COUNT 2.56 mill/uL (4.2-5.4); RED CELL DISTRIBUTION WIDTH 15.9 % (11.6-14.6)
[2019-06-29] MEDS: LEVOFLOXACIN 250MG PREMIX 50 ML IV SCH (12:31)
[2019-06-29 12:51] LABS: PLATELET ESTIMATE NORMAL
[2019-06-29 16:41] VITALS: BP 145/28
[2019-06-29 20:13] VITALS: BP 148/30
[2019-06-30] VITALS (9 sets, daily range): BP systolic 109–145; BP diastolic 21–33
[2019-06-30] MEDS: BLOOD SUGAR DIAGNOSTIC STRIP TEST SCH ×4 (05:11→23:00)
[2019-06-30] MEDS: INSULIN LISPRO 100 UNITS/ML SUBCUT SCH ×3 (05:15→18:19)
[2019-06-30] MEDS: SODIUM CHLORIDE 0.9% INJ 3ML FLUSH IVF SCH ×3 (05:16→22:03)
[2019-06-30] MEDS: SUCRALFATE 1 G/10 ML UDC PO SCH ×4 (06:22→21:44)
[2019-06-30] MEDS: FERROUS SULFATE 300MG/5ML UDC GT SCH ×3 (07:56→17:07)
[2019-06-30] MEDS: DOCUSATE SODIUM SUGAR FREE 100MG/10ML UDC NG SCH (08:28)
[2019-06-30] MEDS: PANTOPRAZOLE SODIUM 40 MG/VIAL IV SCH ×2 (08:28→17:07)
[2019-06-30 09:03] LABS: HEMATOCRIT 21.2 % (36.0-48.0); HEMOGLOBIN 7.2 g/dL (12.0-16.0); MEAN CORPUSCULAR HEMOGLOBIN 30.9 pg (28.0-32.0); MEAN CORPUSCULAR VOLUME 90.6 fL (81.0-99.0); PLATELET 348 x1000/uL (130-400); RED BLOOD CELL COUNT 2.34 mill/uL (4.2-5.4); RED CELL DISTRIBUTION WIDTH 15.9 % (11.6-14.6)
[2019-07-01] VITALS: BP 96/19
[2019-07-01] MEDS: INSULIN LISPRO 100 UNITS/ML SUBCUT SCH ×4 (01:35→17:27)
[2019-07-01] MEDS ORDERED: SODIUM CHLORIDE 0.9% 500 ML IV ONE (02:15)
[2019-07-01 02:40] VITALS: BP 98/23
[2019-07-01 04:00] VITALS: BP 98/23
[2019-07-01] MEDS: ACETAMINOPHEN 325MG TABLET PO PRN (04:45)
[2019-07-01] MEDS: SODIUM CHLORIDE 0.9% INJ 3ML FLUSH IVF SCH ×3 (05:08→21:18)
[2019-07-01] MEDS: BLOOD SUGAR DIAGNOSTIC STRIP TEST SCH ×4 (05:18→23:00)
[2019-07-01] MEDS: SUCRALFATE 1 G/10 ML UDC PO SCH ×4 (06:22→21:18)
[2019-07-01] MEDS: FERROUS SULFATE 300MG/5ML UDC GT SCH ×3 (08:25→17:26)
[2019-07-01] MEDS: PANTOPRAZOLE SODIUM 40 MG/VIAL IV SCH ×2 (08:25→16:19)
[2019-07-01] MEDS: DOCUSATE SODIUM SUGAR FREE 100MG/10ML UDC NG SCH (08:25)
[2019-07-01 08:39] VITALS: BP 111/27
[2019-07-01 12:00] VITALS: BP 119/94
[2019-07-01 12:10] LABS: HEMATOCRIT. 27.2 % (36.0-48.0); MEAN CORPUSCULAR HEMOGLOBIN 29.1 pg (28.0-32.0); MEAN CORPUSCULAR VOLUME 87.9 fL (81.0-99.0); MEAN PLATELET VOLUME 7.2 fl (7.4-10.4); PLATELET 333 x1000/uL (130-400); RED CELL DISTRIBUTION WIDTH 17.6 % (11.6-14.6)
[2019-07-01 12:33] LABS: INR 1.1; PROTHROMBIN TIME 11.4 sec (9.6-11.0)
[2019-07-01 12:47] LABS: FIBRINOGEN > 999 mg/dL (200-400)
[2019-07-01 12:57] LABS: PLATELET ESTIMATE NORMAL
[2019-07-01] MEDS ORDERED: PIPERACILLIN/TAZOBACTAM 3.375 G in DEXT 5% WATER 100 ML IV SCH (13:15)
[2019-07-01] MEDS ORDERED: METRONIDAZOLE 500 MG PREMIX 100 ML IV SCH ×2 (15:00→16:00)
[2019-07-01] MEDS ORDERED: LEVOFLOXACIN 500MG PREMIX 100 ML IV NR (15:30)
[2019-07-01 16:00] VITALS: BP 102/24
[2019-07-02 00:20] VITALS: BP 132/25
[2019-07-02] MEDS: INSULIN LISPRO 100 UNITS/ML SUBCUT SCH ×5 (00:46→23:37)
[2019-07-02] MEDS: METRONIDAZOLE 500 MG PREMIX 100 ML IV SCH ×4 (00:48→23:44)
[2019-07-02 04:00] VITALS: BP 127/24
[2019-07-02] MEDS: SODIUM CHLORIDE 0.9% INJ 3ML FLUSH IVF SCH ×3 (05:18→22:00)
[2019-07-02] MEDS: BLOOD SUGAR DIAGNOSTIC STRIP TEST SCH ×4 (05:19→23:29)
[2019-07-02] MEDS: SUCRALFATE 1 G/10 ML UDC PO SCH ×4 (06:45→23:35)
[2019-07-02] MEDS: FERROUS SULFATE 300MG/5ML UDC GT SCH ×3 (06:45→17:16)
[2019-07-02 08:06] VITALS: BP 112/25
[2019-07-02] MEDS: DOCUSATE SODIUM SUGAR FREE 100MG/10ML UDC NG SCH (08:13)
[2019-07-02] MEDS: PANTOPRAZOLE SODIUM 40 MG/VIAL IV SCH ×2 (08:13→17:16)
[2019-07-02 08:26] LABS: HEMATOCRIT. 25.3 % (36.0-48.0); HEMOGLOBIN. 8.5 g/dL (12.0-16.0); MEAN CORPUSCULAR HEMOGLOBIN 29.5 pg (28.0-32.0); MEAN CORPUSCULAR VOLUME 87.6 fL (81.0-99.0); MEAN PLATELET VOLUME 7.4 fl (7.4-10.4); PLATELET 313 x1000/uL (130-400); RED BLOOD CELL COUNT 2.89 mill/uL (4.2-5.4)
[2019-07-02] MEDS: ACETAMINOPHEN 325MG TABLET PO PRN ×2 (09:21→23:34)
[2019-07-02 12:04] VITALS: BP 103/19
[2019-07-02 14:26] LABS: PLATELET ESTIMATE NORMAL
[2019-07-02 16:05] VITALS: BP 116/26
[2019-07-02 20:00] VITALS: BP 119/50
[2019-07-03] VITALS: BP 115/55
[2019-07-03 04:00] VITALS: BP 128/61
[2019-07-03] MEDS: BLOOD SUGAR DIAGNOSTIC STRIP TEST SCH ×4 (05:00→23:34)
[2019-07-03] MEDS: ACETAMINOPHEN 325MG TABLET PO PRN (05:43)
[2019-07-03] MEDS: SUCRALFATE 1 G/10 ML UDC PO SCH ×4 (05:43→21:00)
[2019-07-03] MEDS: SODIUM CHLORIDE 0.9% INJ 3ML FLUSH IVF SCH ×3 (06:00→23:48)
[2019-07-03] MEDS: INSULIN LISPRO 100 UNITS/ML SUBCUT SCH ×4 (06:19→23:51)
[2019-07-03] MEDS ORDERED: SODIUM BICARBONATE 4% (2.4MEQ) 5ML VIAL IV ONE (07:50)
[2019-07-03] MEDS ORDERED: LIDOCAINE HCL 1% 20ML VIAL (Pyxis) INJ ONE (07:50)
[2019-07-03 08:00] VITALS: BP 122/17
[2019-07-03] MEDS ORDERED: IOHEXOL-300 50 ML BOTTLE IV ONE (08:18)
[2019-07-03] MEDS ORDERED: LEVOFLOXACIN 250MG PREMIX 50 ML IV SCH (09:00)
[2019-07-03] MEDS: PANTOPRAZOLE SODIUM 40 MG/VIAL IV SCH ×2 (10:12→18:53)
[2019-07-03] MEDS: DOCUSATE SODIUM SUGAR FREE 100MG/10ML UDC NG SCH (10:12)
[2019-07-03] MEDS: FERROUS SULFATE 300MG/5ML UDC GT SCH ×3 (10:12→18:53)
[2019-07-03] MEDS: METRONIDAZOLE 500 MG PREMIX 100 ML IV SCH ×2 (10:14→18:55)
[2019-07-03 12:00] VITALS: BP 134/21
[2019-07-03 14:00] LABS: HEMATOCRIT. 23.6 % (36.0-48.0); MEAN CORPUSCULAR HEMOGLOBIN 29.5 pg (28.0-32.0); MEAN CORPUSCULAR VOLUME 87.7 fL (81.0-99.0); MEAN PLATELET VOLUME 7.7 fl (7.4-10.4); PLATELET 311 x1000/uL (130-400); RED CELL DISTRIBUTION WIDTH 17.4 % (11.6-14.6)
[2019-07-03 14:35] LABS: PLATELET ESTIMATE NORMAL
[2019-07-03 16:00] VITALS: BP 118/14
[2019-07-04] VITALS (25 sets, daily range): BP systolic 92–128; BP diastolic 14–103
[2019-07-04] MEDS: METRONIDAZOLE 500 MG PREMIX 100 ML IV SCH ×2 (01:33→08:18)
[2019-07-04] MEDS: BLOOD SUGAR DIAGNOSTIC STRIP TEST SCH ×4 (05:00→23:00)
[2019-07-04] MEDS: INSULIN LISPRO 100 UNITS/ML SUBCUT SCH ×3 (05:09→17:16)
[2019-07-04] MEDS: SUCRALFATE 1 G/10 ML UDC PO SCH ×4 (07:07→22:30)
[2019-07-04] MEDS: SODIUM CHLORIDE 0.9% INJ 3ML FLUSH IVF SCH ×3 (07:07→22:30)
[2019-07-04] MEDS: FERROUS SULFATE 300MG/5ML UDC GT SCH ×3 (07:50→17:19)
[2019-07-04] MEDS: IPRATROPIUM/ALBUTEROL 0.5-3(2.5)MG/3ML NEB NEB PRN ×2 (08:12→12:32)
[2019-07-04] MEDS: PANTOPRAZOLE SODIUM 40 MG/VIAL IV SCH ×2 (09:06→16:23)
[2019-07-04] MEDS: DOCUSATE SODIUM SUGAR FREE 100MG/10ML UDC NG SCH (09:07)
[2019-07-04 11:26] LABS: BG BASE EXCESS -1.9 mmol/L (-2.0-2.0); BG CARBOXYHEMOGLOBIN 0.3 % (0.5-1.5); BG DEOXYHEMOGLOBIN 1.6 % (0.0-5.0); BG FRACTION INSPIRED OXYGEN 32; BG HCO3 ACT 21.7 mmol/L (22.0-26.0); BG METHEMOGLOBIN 0.3 % (0.0-1.5); BG OXYGEN SATURATION 98.4 % (92.0-98.5); BG OXYHEMOGLOBIN 97.8 % (94.0-97.0); BG PO2 117.1 mmHg (75.0-100.0); BG SAMPLE SITE RIGHT BRACHIAL; BG TOTAL HEMOGLOBIN 7.8 g/dL (12.0-18.0); BG VENT MODE NASAL CANNULA
[2019-07-04] MEDS ORDERED: AZTREONAM 1 G in DEXTROSE 5% WATER 50 ML IV SCH (11:45)
[2019-07-04] MEDS: IPRATROPIUM/ALBUTEROL 0.5-3(2.5)MG/3ML NEB HHN SCH ×3 (12:42→20:54)
[2019-07-04 13:31] LABS: HEMATOCRIT. 23.1 % (36.0-48.0); HEMOGLOBIN. 7.7 g/dL (12.0-16.0); MEAN CORPUSCULAR HEMOGLOBIN 29.2 pg (28.0-32.0); MEAN CORPUSCULAR VOLUME 87.3 fL (81.0-99.0); MEAN PLATELET VOLUME 7.8 fl (7.4-10.4); PLATELET 313 x1000/uL (130-400); RED BLOOD CELL COUNT 2.64 mill/uL (4.2-5.4); RED CELL DISTRIBUTION WIDTH 17.5 % (11.6-14.6)
[2019-07-04 13:39] LABS: CHLORIDE 105 mEq/L (98-107)
[2019-07-04] MEDS ORDERED: VANCOMYCIN 1 G PREMIX 200 ML IV SCH (15:00)
[2019-07-04] MEDS ORDERED: SODIUM CHLORIDE 10% FOR INH 15ML VIAL NEB INH SCH (15:00)
[2019-07-04] MEDS: AZTREONAM 500MG in DEXTROSE 5% WATER 50ML IV SCH ×2 (15:24→23:51)
[2019-07-04 16:05] LABS: PLATELET ESTIMATE NORMAL
[2019-07-04] MEDS ORDERED: ACETAMINOPHEN 325MG TABLET PO NR (16:07)
[2019-07-04] MEDS: ACETYLCYSTEINE 100MG/ML 10% VIAL 4ML INH SCH (16:38)
[2019-07-04 17:10] LABS: HEMATOCRIT. 22.2 % (36.0-48.0); HEMOGLOBIN. 7.4 g/dL (12.0-16.0); MEAN CORPUSCULAR HEMOGLOBIN 29.2 pg (28.0-32.0); MEAN CORPUSCULAR VOLUME 87.4 fL (81.0-99.0); MEAN PLATELET VOLUME 7.8 fl (7.4-10.4); PLATELET 314 x1000/uL (130-400); RED BLOOD CELL COUNT 2.54 mill/uL (4.2-5.4); RED CELL DISTRIBUTION WIDTH 17.5 % (11.6-14.6)
[2019-07-04 17:24] LABS: PLATELET ESTIMATE NORMAL
[2019-07-04] MEDS: METRONIDAZOLE 500MG TABLET PO SCH (22:30)
[2019-07-04] MEDS ORDERED: POTASSIUM CHLORIDE INJ 40 MEQ in DEXT 5% WATER 250 ML IV NR (23:00)
[2019-07-05] VITALS (12 sets, daily range): BP systolic 108–146; BP diastolic 25–67
[2019-07-05] MEDS: INSULIN LISPRO 100 UNITS/ML SUBCUT SCH ×5 (00:39→23:23)
[2019-07-05] MEDS: IPRATROPIUM/ALBUTEROL 0.5-3(2.5)MG/3ML NEB HHN SCH ×6 (00:47→21:54)
[2019-07-05] MEDS: ACETYLCYSTEINE 100MG/ML 10% VIAL 4ML INH SCH ×3 (00:50→16:53)
[2019-07-05 01:45] LABS: HEMATOCRIT 28.4 % (36.0-48.0); HEMOGLOBIN 9.5 g/dL (12.0-16.0)
[2019-07-05 03:00] LABS: INR 1.1; PROTHROMBIN TIME 11.8 sec (9.6-11.0)
[2019-07-05] MEDS: BLOOD SUGAR DIAGNOSTIC STRIP TEST SCH ×4 (04:20→23:07)
[2019-07-05] MEDS: SODIUM CHLORIDE 0.9% INJ 3ML FLUSH IVF SCH ×3 (04:51→20:59)
[2019-07-05] MEDS: SUCRALFATE 1 G/10 ML UDC PO SCH (06:56)
[2019-07-05 06:59] LABS: CLARITY URINE TURBID (CLEAR); COLOR URINE ORANGE (YELLOW); KETONES URINE NEGATIVE (NEGATIVE); LEUKOCYTE ESTERASE URINE 3+ (NEGATIVE); NITRITE URINE POSITIVE (NEGATIVE); OCCULT BLOOD URINE 2+ (NEGATIVE); PROTEIN URINE 3+ (NEGATIVE); SPECIFIC GRAVITY URINE 1.024 (1.005-1.030); UROBILINOGEN URINE 0.2 E.U./dL (0.2-1.0)
[2019-07-05 07:14] LABS: HEMATOCRIT. 27.2 % (36.0-48.0); HEMOGLOBIN. 9.4 g/dL (12.0-16.0); MEAN CORPUSCULAR HEMOGLOBIN 29.9 pg (28.0-32.0); MEAN CORPUSCULAR VOLUME 86.6 fL (81.0-99.0); MEAN PLATELET VOLUME 8.2 fl (7.4-10.4); PLATELET 305 x1000/uL (130-400); RED BLOOD CELL COUNT 3.14 mill/uL (4.2-5.4); RED CELL DISTRIBUTION WIDTH 16.8 % (11.6-14.6)
[2019-07-05 07:41] LABS: CHLORIDE 103 mEq/L (98-107)
[2019-07-05 07:57] LABS: PHOSPHORUS < 0.1 mg/dL (2.5-4.9)
[2019-07-05] MEDS ORDERED: SODIUM PHOS,M-BASIC-D-BASIC 20 MM in DEXT 5% WATER 243.3333 ML IV NR ×2 (09:30→14:00)
[2019-07-05] MEDS: DOCUSATE SODIUM SUGAR FREE 100MG/10ML UDC NG SCH (09:57)
[2019-07-05] MEDS: METRONIDAZOLE 500MG TABLET PO SCH ×2 (09:57→20:59)
[2019-07-05] MEDS: PANTOPRAZOLE SODIUM 40 MG/VIAL IV SCH ×2 (09:57→18:40)
[2019-07-05] MEDS: AZTREONAM 500MG in DEXTROSE 5% WATER 50ML IV SCH ×2 (09:58→20:59)
[2019-07-05] MEDS: FERROUS SULFATE 300MG/5ML UDC GT SCH ×3 (10:17→18:39)
[2019-07-05] MEDS: IPRATROPIUM/ALBUTEROL 0.5-3(2.5)MG/3ML NEB NEB PRN (10:44)
[2019-07-05 11:17] LABS: PLATELET ESTIMATE NORMAL
[2019-07-05] MEDS ORDERED: VANCOMYCIN 750 MG PREMIX 150 ML IV NR (18:00)
[2019-07-05] MEDS: FOLIC ACID 1MG TABLET PO SCH (18:39)
[2019-07-05] MEDS: THIAMINE HCL 100MG TABLET PO SCH (18:41)
[2019-07-05] MEDS ORDERED: DEXT 5%/0.45% NACL 1000ML 1,000 ML IV SCH (19:45)
[2019-07-06] VITALS (13 sets, daily range): BP systolic 90–135; BP diastolic 33–72
[2019-07-06] MEDS: ACETYLCYSTEINE 100MG/ML 10% VIAL 4ML INH SCH ×3 (00:58→16:20)
[2019-07-06] MEDS: IPRATROPIUM/ALBUTEROL 0.5-3(2.5)MG/3ML NEB HHN SCH ×6 (00:58→20:48)
[2019-07-06] MEDS: BLOOD SUGAR DIAGNOSTIC STRIP TEST SCH ×4 (05:47→23:00)
[2019-07-06] MEDS: SODIUM CHLORIDE 0.9% INJ 3ML FLUSH IVF SCH ×3 (05:48→22:00)
[2019-07-06] MEDS: INSULIN LISPRO 100 UNITS/ML SUBCUT SCH ×3 (06:02→18:00)
[2019-07-06 07:49] LABS: HEMATOCRIT. 21.7 % (36.0-48.0); HEMOGLOBIN. 7.6 g/dL (12.0-16.0); MEAN CORPUSCULAR HEMOGLOBIN 30.3 pg (28.0-32.0); MEAN CORPUSCULAR VOLUME 86.1 fL (81.0-99.0); MEAN PLATELET VOLUME 8.1 fl (7.4-10.4); PLATELET 244 x1000/uL (130-400); RED BLOOD CELL COUNT 2.52 mill/uL (4.2-5.4); RED CELL DISTRIBUTION WIDTH 17.2 % (11.6-14.6)
[2019-07-06] MEDS: THIAMINE HCL 100MG TABLET PO SCH (08:16)
[2019-07-06] MEDS: METRONIDAZOLE 500MG TABLET PO SCH (08:16)
[2019-07-06] MEDS: FOLIC ACID 1MG TABLET PO SCH (08:16)
[2019-07-06] MEDS: FERROUS SULFATE 300MG/5ML UDC GT SCH ×3 (08:16→18:22)
[2019-07-06] MEDS: DOCUSATE SODIUM SUGAR FREE 100MG/10ML UDC NG SCH (08:17)
[2019-07-06] MEDS: PANTOPRAZOLE SODIUM 40 MG/VIAL IV SCH ×2 (08:17→17:56)
[2019-07-06 10:22] LABS: PLATELET ESTIMATE NORMAL
[2019-07-06] MEDS: AZTREONAM 500MG in DEXTROSE 5% WATER 50ML IV SCH (11:06)
[2019-07-06 15:43] LABS: PHOSPHORUS 0.3 mg/dL (2.5-4.9)
[2019-07-06] MEDS: ACETAMINOPHEN 325MG TABLET PO PRN (16:22)
[2019-07-06] MEDS ORDERED: SODIUM PHOS,M-BASIC-D-BASIC 20 MM in DEXT 5% WATER 243.3333 ML IV NR ×2 (17:00→23:00)
[2019-07-07] VITALS (17 sets, daily range): BP systolic 105–138; BP diastolic 30–81
[2019-07-07] MEDS: INSULIN LISPRO 100 UNITS/ML SUBCUT SCH ×4 (00:14→18:59)
[2019-07-07] MEDS: IPRATROPIUM/ALBUTEROL 0.5-3(2.5)MG/3ML NEB HHN SCH ×6 (00:16→20:09)
[2019-07-07] MEDS: ACETYLCYSTEINE 100MG/ML 10% VIAL 4ML INH SCH ×3 (00:17→15:48)
[2019-07-07] MEDS: AZTREONAM 500MG in DEXTROSE 5% WATER 50ML IV SCH ×3 (00:24→21:46)
[2019-07-07] MEDS: METRONIDAZOLE 500MG TABLET PO SCH ×3 (01:11→21:36)
[2019-07-07] MEDS: BLOOD SUGAR DIAGNOSTIC STRIP TEST SCH ×3 (05:00→18:54)
[2019-07-07] MEDS: SODIUM CHLORIDE 0.9% INJ 3ML FLUSH IVF SCH ×3 (06:03→21:36)
[2019-07-07 07:48] LABS: HEMOGLOBIN. 7.9 g/dL (12.0-16.0); MEAN CORPUSCULAR HEMOGLOBIN 29.7 pg (28.0-32.0); MEAN PLATELET VOLUME 7.8 fl (7.4-10.4); PLATELET 321 x1000/uL (130-400); RED BLOOD CELL COUNT 2.67 mill/uL (4.2-5.4); RED CELL DISTRIBUTION WIDTH 17.1 % (11.6-14.6)
[2019-07-07] MEDS: FERROUS SULFATE 300MG/5ML UDC GT SCH ×3 (08:00→17:39)
[2019-07-07] MEDS: FOLIC ACID 1MG TABLET PO SCH ×2 (09:00→11:40)
[2019-07-07] MEDS: THIAMINE HCL 100MG TABLET PO SCH ×2 (09:00→11:40)
[2019-07-07] MEDS: DOCUSATE SODIUM SUGAR FREE 100MG/10ML UDC NG SCH (09:00)
[2019-07-07] MEDS: PANTOPRAZOLE SODIUM 40 MG/VIAL IV SCH ×2 (09:28→17:39)
[2019-07-07 10:09] LABS: PLATELET ESTIMATE NORMAL
[2019-07-07] MEDS ORDERED: VANCOMYCIN 750 MG PREMIX 150 ML IV SCH (13:00)
[2019-07-07] MEDS ORDERED: SODIUM PHOS,M-BASIC-D-BASIC 20 MM in DEXT 5% WATER 243.3333 ML IV SCH (16:00)
[2019-07-07 17:22] LABS: HEMATOCRIT 28.5 % (36.0-48.0); HEMOGLOBIN 9.7 g/dL (12.0-16.0)
[2019-07-07 17:35] LABS: PHOSPHORUS 1.5 mg/dL (2.5-4.9)
[2019-07-07] MEDS: METOCLOPRAMIDE HCL 10MG/2ML VIAL IV SCH ×2 (17:39→21:36)
[2019-07-07] MEDS: ACETAMINOPHEN 325MG TABLET PO PRN (19:30)
[2019-07-08] VITALS (12 sets, daily range): BP systolic 86–138; BP diastolic 27–73
[2019-07-08] MEDS: BLOOD SUGAR DIAGNOSTIC STRIP TEST SCH ×4 (00:21→17:47)
[2019-07-08] MEDS: INSULIN LISPRO 100 UNITS/ML SUBCUT SCH ×4 (00:22→17:48)
[2019-07-08] MEDS: IPRATROPIUM/ALBUTEROL 0.5-3(2.5)MG/3ML NEB HHN SCH ×6 (00:30→21:35)
[2019-07-08] MEDS: ACETYLCYSTEINE 100MG/ML 10% VIAL 4ML INH SCH ×4 (00:31→16:55)
[2019-07-08] MEDS: METOCLOPRAMIDE HCL 10MG/2ML VIAL IV SCH ×3 (06:30→21:18)
[2019-07-08] MEDS: SODIUM CHLORIDE 0.9% INJ 3ML FLUSH IVF SCH ×3 (06:30→21:19)
[2019-07-08 07:12] LABS: PHOSPHORUS 3.2 mg/dL (2.5-4.9)
[2019-07-08] MEDS: FERROUS SULFATE 300MG/5ML UDC GT SCH ×3 (08:21→17:47)
[2019-07-08] MEDS: AZTREONAM 500MG in DEXTROSE 5% WATER 50ML IV SCH ×2 (08:21→21:18)
[2019-07-08] MEDS: THIAMINE HCL 100MG TABLET PO SCH (08:21)
[2019-07-08] MEDS: DOCUSATE SODIUM SUGAR FREE 100MG/10ML UDC NG SCH (08:21)
[2019-07-08] MEDS: METRONIDAZOLE 500MG TABLET PO SCH ×2 (08:21→21:18)
[2019-07-08] MEDS: FOLIC ACID 1MG TABLET PO SCH (08:21)
[2019-07-08] MEDS: PANTOPRAZOLE SODIUM 40 MG/VIAL IV SCH ×2 (08:21→17:47)
[2019-07-09] VITALS (12 sets, daily range): BP systolic 79–125; BP diastolic 24–97
[2019-07-09] MEDS: IPRATROPIUM/ALBUTEROL 0.5-3(2.5)MG/3ML NEB HHN SCH ×6 (00:37→20:55)
[2019-07-09] MEDS: METOCLOPRAMIDE HCL 10MG/2ML VIAL IV SCH ×3 (05:21→22:08)
[2019-07-09] MEDS: INSULIN LISPRO 100 UNITS/ML SUBCUT SCH ×4 (06:00→18:00)
[2019-07-09] MEDS: SODIUM CHLORIDE 0.9% INJ 3ML FLUSH IVF SCH ×3 (06:00→22:08)
[2019-07-09] MEDS: BLOOD SUGAR DIAGNOSTIC STRIP TEST SCH ×4 (06:00→18:49)
[2019-07-09 06:50] LABS: PHOSPHORUS 3.6 mg/dL (2.5-4.9)
[2019-07-09] MEDS: ACETYLCYSTEINE 100MG/ML 10% VIAL 4ML INH SCH ×2 (08:30→14:48)
[2019-07-09] MEDS: AZTREONAM 500MG in DEXTROSE 5% WATER 50ML IV SCH ×2 (09:39→22:06)
[2019-07-09] MEDS: FERROUS SULFATE 300MG/5ML UDC GT SCH ×3 (09:40→18:50)
[2019-07-09] MEDS: PANTOPRAZOLE SODIUM 40 MG/VIAL IV SCH ×2 (09:40→18:50)
[2019-07-09] MEDS: DOCUSATE SODIUM SUGAR FREE 100MG/10ML UDC NG SCH (09:40)
[2019-07-09] MEDS: METRONIDAZOLE 500MG TABLET PO SCH ×2 (09:41→22:06)
[2019-07-10] VITALS (12 sets, daily range): BP systolic 83–117; BP diastolic 32–70
[2019-07-10] MEDS: DEXTROSE 50% WATER 50ML SYRINGE IV PRN ×2 (00:29→01:24)
[2019-07-10] MEDS: IPRATROPIUM/ALBUTEROL 0.5-3(2.5)MG/3ML NEB HHN SCH ×6 (04:34→22:04)
[2019-07-10] MEDS: INSULIN LISPRO 100 UNITS/ML SUBCUT SCH ×4 (05:08→18:00)
[2019-07-10] MEDS: BLOOD SUGAR DIAGNOSTIC STRIP TEST SCH ×4 (05:08→18:26)
[2019-07-10] MEDS: METOCLOPRAMIDE HCL 10MG/2ML VIAL IV SCH ×3 (05:44→21:59)
[2019-07-10] MEDS: SODIUM CHLORIDE 0.9% INJ 3ML FLUSH IVF SCH ×3 (05:45→22:00)
[2019-07-10 06:18] LABS: HEMATOCRIT. 25.9 % (36.0-48.0); HEMOGLOBIN. 8.7 g/dL (12.0-16.0); MEAN CORPUSCULAR HEMOGLOBIN 28.7 pg (28.0-32.0); MEAN CORPUSCULAR VOLUME 85.3 fL (81.0-99.0); MEAN PLATELET VOLUME 7.7 fl (7.4-10.4); PLATELET 410 x1000/uL (130-400); RED BLOOD CELL COUNT 3.03 mill/uL (4.2-5.4); RED CELL DISTRIBUTION WIDTH 18.4 % (11.6-14.6)
[2019-07-10 06:54] LABS: PHOSPHORUS 3.9 mg/dL (2.5-4.9)
[2019-07-10] MEDS: FERROUS SULFATE 300MG/5ML UDC GT SCH ×3 (09:23→18:44)
[2019-07-10] MEDS: PANTOPRAZOLE SODIUM 40 MG/VIAL IV SCH ×2 (09:23→17:00)
[2019-07-10] MEDS: METRONIDAZOLE 500MG TABLET PO SCH ×2 (09:23→21:59)
[2019-07-10] MEDS: DOCUSATE SODIUM SUGAR FREE 100MG/10ML UDC NG SCH (09:23)
[2019-07-10 09:33] LABS: PLATELET ESTIMATE INCREASED
[2019-07-10] MEDS: AZTREONAM 500MG in DEXTROSE 5% WATER 50ML IV SCH ×2 (11:12→21:59)
[2019-07-10] MEDS ORDERED: VANCOMYCIN 750 MG PREMIX 150 ML IV NR (13:00)
[2019-07-11] VITALS: BP 96/27
[2019-07-11] MEDS: IPRATROPIUM/ALBUTEROL 0.5-3(2.5)MG/3ML NEB HHN SCH ×3 (01:51→08:00)
[2019-07-11] MEDS: ACETAMINOPHEN 325MG TABLET PO PRN (01:59)
[2019-07-11 02:00] VITALS: BP 93/36
[2019-07-11 04:00] VITALS: BP 99/37
[2019-07-11] MEDS: METOCLOPRAMIDE HCL 10MG/2ML VIAL IV SCH (05:36)
[2019-07-11] MEDS: BLOOD SUGAR DIAGNOSTIC STRIP TEST SCH ×2 (05:36)
[2019-07-11] MEDS: SODIUM CHLORIDE 0.9% INJ 3ML FLUSH IVF SCH (05:36)
[2019-07-11 06:00] VITALS: BP 60/47
[2019-07-11] MEDS: INSULIN LISPRO 100 UNITS/ML SUBCUT SCH ×2 (06:00)
[2019-07-11] MEDS: FERROUS SULFATE 300MG/5ML UDC GT SCH (08:00)
== END 2019-07-11 13:57 | disposition expired | DRG 871 ==
LOC: ER 14:36 → 6WST 16:26 → ENRESERV 21:42 → 5EST 07-04 12:07
PROVIDERS: ADMIT Internal Medicine; ATTEND Internal Medicine
PROC: 30233N1 Transfusion of Nonautologous Red Blood Cells into Peripheral Vein, Percutaneous Approach (ICD-10-PCS; 2019-06-22)
PROC: 5A1D70Z Performance of Urinary Filtration, Intermittent, Less than 6 Hours Per Day (ICD-10-PCS; 2019-06-24)
PROC: 0DJ08ZZ Inspection of Upper Intestinal Tract, Via Natural or Artificial Opening Endoscopic (ICD-10-PCS; principal; 2019-06-25)
PROC: 5A1D70Z Performance of Urinary Filtration, Intermittent, Less than 6 Hours Per Day (ICD-10-PCS; 2019-06-26)
PROC: 0DBK8ZX Excision of Ascending Colon, Via Natural or Artificial Opening Endoscopic, Diagnostic (ICD-10-PCS; 2019-06-27)
PROC: 0DBL8ZX Excision of Transverse Colon, Via Natural or Artificial Opening Endoscopic, Diagnostic (ICD-10-PCS; 2019-06-27)
PROC: 5A1D70Z Performance of Urinary Filtration, Intermittent, Less than 6 Hours Per Day (ICD-10-PCS; 2019-06-27)
PROC: 5A1D70Z Performance of Urinary Filtration, Intermittent, Less than 6 Hours Per Day (ICD-10-PCS; 2019-06-29)
PROC: 5A1D70Z Performance of Urinary Filtration, Intermittent, Less than 6 Hours Per Day (ICD-10-PCS; 2019-07-02)
PROC: 02HV33Z Insertion of Infusion Device into Superior Vena Cava, Percutaneous Approach (ICD-10-PCS; 2019-07-03)
PROC: B548ZZA Ultrasonography of Superior Vena Cava, Guidance (ICD-10-PCS; 2019-07-03)
PROC: 5A1D70Z Performance of Urinary Filtration, Intermittent, Less than 6 Hours Per Day (ICD-10-PCS; 2019-07-04)
PROC: 5A1D70Z Performance of Urinary Filtration, Intermittent, Less than 6 Hours Per Day (ICD-10-PCS; 2019-07-06)
PROC: 5A1D70Z Performance of Urinary Filtration, Intermittent, Less than 6 Hours Per Day (ICD-10-PCS; 2019-07-09)
DX: A41.9 Sepsis, unspecified organism (principal); L89.103 Pressure ulcer of unspecified part of back, stage 3; N18.6 End stage renal disease; E43 Unspecified severe protein-calorie malnutrition; G93.41 Metabolic encephalopathy; R65.21 Severe sepsis with septic shock; J96.01 Acute respiratory failure with hypoxia; J69.0 Pneumonitis due to inhalation of food and vomit; E87.1 Hypo-osmolality and hyponatremia; J98.11 Atelectasis; I12.0 Hypertensive chronic kidney disease with stage 5 chronic kidney disease or end stage renal disease; C18.2 Malignant neoplasm of ascending colon; E87.2 Acidosis; L03.119 Cellulitis of unspecified part of limb; T79.7XXA Traumatic subcutaneous emphysema, initial encounter; E11.22 Type 2 diabetes mellitus with diabetic chronic kidney disease; E87.6 Hypokalemia; K44.9 Diaphragmatic hernia without obstruction or gangrene; K29.80 Duodenitis without bleeding; D50.9 Iron deficiency anemia, unspecified; E11.51 Type 2 diabetes mellitus with diabetic peripheral angiopathy without gangrene; E11.65 Type 2 diabetes mellitus with hyperglycemia; E83.39 Other disorders of phosphorus metabolism; F03.90 Unspecified dementia, unspecified severity, without behavioral disturbance, psychotic disturbance, mood disturbance, and anxiety; I25.10 Atherosclerotic heart disease of native coronary artery without angina pectoris; I70.201 Unspecified atherosclerosis of native arteries of extremities, right leg; K64.9 Unspecified hemorrhoids; L89.159 Pressure ulcer of sacral region, unspecified stage; L89.899 Pressure ulcer of other site, unspecified stage; R13.10 Dysphagia, unspecified; X58.XXXA Exposure to other specified factors, initial encounter; L89.890 Pressure ulcer of other site, unstageable; M20.42 Other hammer toe(s) (acquired), left foot; M20.41 Other hammer toe(s) (acquired), right foot; Z51.5 Encounter for palliative care; K29.60 Other gastritis without bleeding; L89.210 Pressure ulcer of right hip, unstageable; S51.812A Laceration without foreign body of left forearm, initial encounter; Z66 Do not resuscitate; Z74.01 Bed confinement status; Z86.73 Personal history of transient ischemic attack (TIA), and cerebral infarction without residual deficits; Z99.2 Dependence on renal dialysis; Z87.11 Personal history of peptic ulcer disease; Z86.19 Personal history of other infectious and parasitic diseases; Z93.1 Gastrostomy status; Z79.899 Other long term (current) drug therapy; Z88.0 Allergy status to penicillin; Z91.018 Allergy to other foods; Z68.21 Body mass index [BMI] 21.0-21.9, adult; Z87.440 Personal history of urinary (tract) infections; Y93.89 Activity, other specified; Y92.89 Other specified places as the place of occurrence of the external cause; Y99.8 Other external cause status
CPT/HCPCS: 36415; 36573; 36600; 71045; 74176; 76937; 80048; 80053; 80202; 81003; 82270; 82375; 82378; 82550; 82553; 82728; 82805; 82962; 83540; 83550; 83605; 84100; 84134; 84145; 84484; 85014; 85018; 85025; 85027; 85049; 85384; 85651; 86850; 86900; 86920; 87070; 88305; 93005; 93923; 93970; 93971; 94640; 96365; 99285; A6261; C1725; C9113; J1644; J1815; J1956; J2250; J2765; J2997; J3010; J3370; J3480; J3490; J7040; J7060; J7131; J7608; P9016; Q9967